=== PATIENT | female | born 1945 | race Caucasian/White ===

== ENCOUNTER → 2017-01-02 | Outpatient (CLI) | payer OTHER, BC ==
[~2017-01-02] MED LIST: CITRUCEL CAPLET1 TA1 PO; FLAGYL 250 MG250 MG PO; FORTICAL NASAL; HYDROCODON-ACE1 EAC7 PO; IBUPROFEN 400400 M1 PO; LEVOTHYROXIN0.075 MG PO; LIPITOR20 MG PO; LORTAB 7.5/5001 TA3 PO; MIDRIN CAPSULE1 CAP PO; MIDRIN PO; MIRALAX255 GM PO; OMEPRAZOLE 20 M20 M1 PO; OSCIMIN0.125 MG PO; PAIN & FEVER325 MG PO; SYNTHROID88 MCG PO; THERA-M CAPLET1 EACH PO; TRAMADOL 50 MG50 MG PO; [UNRECOGNIZED DRUG - OTHER]
== END ==
LOC: RAD 16:37
DX: M19.071 Primary osteoarthritis, right ankle and foot (principal)

== ENCOUNTER → 2017-04-05 | Outpatient (CLI) | payer OTHER, BC | LOC: MRI 08:21 | DX: M19.071 Primary osteoarthritis, right ankle and foot (principal) ==

== ENCOUNTER → 2017-10-17 | Outpatient (CLI) | payer OTHER, BC ==
[~2017-10-17] VITALS: Ht 157.5 cm; Wt 91.5 kg
[~2017-10-17] MED LIST changes: +CALCITONIN-SAL3.7 ML NASAL; +CALCIUM 600 +1 EAC1 PO; +CENTRUM SILVER1 EAC4 PO; +HYDROCODON-ACE1 EAC8 PO; +MOBIC15 MG PO; +PERCOCET 7.5-31 EACH PO; +VENTOLIN HFA 1818 GM INH; +VICOPROFEN PO
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
[2017-10-17 14:54] VITALS: BP 139/68
== END ==
LOC: PAIN 05:57
DX: M19.071 Primary osteoarthritis, right ankle and foot (principal)

== ENCOUNTER → 2017-10-21 | Outpatient (CLI) | payer OTHER, BC ==
[~2017-10-21] VITALS: Ht 157.5 cm; Wt 90.8 kg
--- NOTE | ~2017-10-21 | HPC ---
[facility] [place] [address] [place] [address] PAIN MANAGEMENT CONSULTATION Name: MEDELLINYVAN Room #: [facility] Catherine.#: [id number] Admission: 10/21/17 Attend Phys: Johnny Goodwin MD Discharge: Date of : 49 Report #: [id number] THIS REPORT FOR: //name// CC: Obi Goodwin DATE OF SERVICE: 10/21/2017 Followup visit for severe osteoarthritis, right ankle with varus deformity. The patient was seen in consultation last week and is here today for injection of the tibiotalar joint on the left. I discussed potential risks and benefits of this during my extensive initial consultation. Please refer to that note. We were unable to perform the injection on the date of visit. There have been no changes since her last visit. Reviewed the procedure, risks and benefits in detail. She would like to proceed. IMPRESSION: Severe osteoarthritis right ankle with varus deformity. PROCEDURE: Tibiotalar ankle injection under fluoroscopic guidance. She was taken to fluoroscopic suite where she was placed in supine position. Skin was prepped with ChloraPrep. Using medial to the anterior approach, identified opening in the joint with fluoroscopic views. Skin was anesthetized and a 27-gauge needle was gently used to probe the joint space. Needle was felt to gently enter the joint space and then I injected 0.25 mL of Omnipaque to demonstrate an arthrogram as represented by spread of dye along the talar dome. This was then followed by 40 mg of triamcinolone, 1.5 mL of 0.5% bupivacaine. She tolerated the procedure well and pain was gone from her ankle at the time of discharge. Follow up as needed for further injections. By: [id number] Johnny Goodwin MD /nt
[2017-10-21 09:42] VITALS: BP 130/76
== END | disposition home or self-care (01) ==
LOC: PAIN 07:06
DX: M19.071 Primary osteoarthritis, right ankle and foot (principal); Z98.890 Other specified postprocedural states; F17.210 Nicotine dependence, cigarettes, uncomplicated; Z79.891 Long term (current) use of opiate analgesic; Z88.0 Allergy status to penicillin; Z88.8 Allergy status to other drugs, medicaments and biological substances; Z79.899 Other long term (current) drug therapy

== ENCOUNTER → 2019-07-27 | Outpatient (CLI) | payer OTHER, BC | LOC: RAD 13:08 | DX: M19.071 Primary osteoarthritis, right ankle and foot (principal); M25.774 Osteophyte, right foot ==

== ENCOUNTER → 2020-02-24 | Outpatient (CLI) | payer OTHER, BC | LOC: RAD 12:39 → BC 13:53 | PROVIDERS: ATTEND Family Medicine | DX: Z12.31 Encounter for screening mammogram for malignant neoplasm of breast (principal) ==

== ENCOUNTER → 2020-11-09 | Outpatient (CLI) | payer OTHER, BC | LOC: SJCVC 14:20 | PROVIDERS: ATTEND Internal Medicine Cardiovascular Disease | DX: I36.1 Nonrheumatic tricuspid (valve) insufficiency (principal); E78.00 Pure hypercholesterolemia, unspecified; R55 Syncope and collapse; E78.5 Hyperlipidemia, unspecified; I34.0 Nonrheumatic mitral (valve) insufficiency; F17.210 Nicotine dependence, cigarettes, uncomplicated; M19.90 Unspecified osteoarthritis, unspecified site; Z88.5 Allergy status to narcotic agent; Z88.1 Allergy status to other antibiotic agents; Z88.0 Allergy status to penicillin; Z79.891 Long term (current) use of opiate analgesic; Z79.899 Other long term (current) drug therapy; Z82.49 Family history of ischemic heart disease and other diseases of the circulatory system ==